=== PATIENT | male | born 1950 | race Hispanic/Latino ===

== ENCOUNTER 2020-04-25 06:58 | Outpatient (CLI) | payer MEDICARE, OTHER ==
[2020-04-25 18:16] LABS: SARS-CoV-2 MS2 Positive; SARS-CoV-2 N Gene Negative; SARS-CoV-2 S Gene Negative; SARS-CoV-2 by NAA Not Detected (NotDetected); SARS-CoV-2 orf1ab Negative
== END 2020-04-25 06:59 | disposition home or self-care (01) ==
LOC: LABBT 06:58
PROVIDERS: ATTEND Ophthalmology Retina Specialist
DX: H35.341 Macular cyst, hole, or pseudohole, right eye (principal); Z20.828 Contact with and (suspected) exposure to other viral communicable diseases
CPT/HCPCS: 87635; U0003

== ENCOUNTER 2020-04-29 06:29 | Day surgery (SDC) | payer MEDICARE ==
[2020-04-28 12:26] VITALS: BMI 23.1
[2020-04-29] MEDS ORDERED: EPINEPHrine 0.3 MG in Ophthalmic Irrigation Solution 500 ML IRR SCH (06:30)
[2020-04-29] MEDS ORDERED: PROPOFOL 20 ML ONE (06:50)
[2020-04-29] MEDS ORDERED: Midazolam HCl 2 mg/2 ml Vial ONE (06:50)
[2020-04-29] MEDS ORDERED: Phenylephrine 2.5% Ophth Soln 5 ML BOT ONE (06:54)
[2020-04-29] MEDS ORDERED: Cyclopentolate 1% Opth Drop 2 ML BOT ONE (06:54)
[2020-04-29] MEDS ORDERED: Labetalol HCl 100 MG/20 ML VIAL ONE (09:33)
[2020-04-29] MEDS ORDERED: CEFAZOLIN 1 GM VIAL ONE (09:48)
[2020-04-29] MEDS ORDERED: Lidocaine 1% PF 5 ML VIAL ONE (09:48)
[2020-04-29] MEDS ORDERED: Lidocaine 4% PF 5 ML AMP ONE (09:48)
[2020-04-29] MEDS ORDERED: Indocyanine Green 25 MG/10 ML VIAL ONE (09:48)
[2020-04-29] MEDS ORDERED: Triamcinolone 40 MG/ML VIAL ONE (09:48)
[2020-04-29] MEDS ORDERED: Maxitrol 0.1% Opth Oint 3.5 GM TUBE ONE (09:48)
[2020-04-29] MEDS ORDERED: Bupivacaine PF 0.75% SDV 10 ML ONE (09:48)
--- NOTE | 2020-04-29 14:23 | OP ---
DATE OF PROCEDURE: 04/29/2020 PRINCIPAL PREOPERATIVE DIAGNOSIS: Macular hole, right eye. POSTOPERATIVE DIAGNOSIS: Macular hole, right eye. PROCEDURES PERFORMED: 1. 25-gauge pars plana vitrectomy, right eye. 2. Internal limiting membrane peel, right eye. 3. 15% SF6 fill, right eye. ESTIMATED BLOOD LOSS: None. SPECIMENS REMOVED: None. COMPLICATIONS: None. ANESTHESIA: MAC with sub-Tenon's block. DESCRIPTION OF PROCEDURE: The patient was identified in the preoperative holding area, where the correct eye being the right eye was marked for surgery. The patient was taken to the operating room, where MAC anesthesia was induced. The right eye was prepped and draped in the usual sterile ophthalmic fashion for surgery. A wire-clip lid speculum was placed. An inferonasal conjunctival peritomy was fashioned with Mannie scissors for administration of sub-Tenon's block. The block consisted of 1:1 ratio of 4% lidocaine and 0.75% Marcaine. A total of 5 mL administered. A standard 25-gauge pars plana vitrectomy platform was fashioned with trocars placed approximately 3.5 mm from the limbus. The infusion was noted to be within the vitreous cavity prior to being turned on to an infusion pressure of 30 mmHg. The light pipe and microvitrector were introduced in the eye under visualization of the BIOM viewing system. A careful core vitrectomy was performed followed by injection of the Kenalog. A gentle posterior vitreous detachment was created followed by completion of peripheral shave vitrectomy. Following vitrectomy, ICG dye was used to stain the internal limiting membrane. Using the Jarrett ILM forceps, the internal limiting membrane was peeled in a circumferential fashion about the fovea. The peel extended approximately 2 disk diameters in radius circumferentially. Following peeling, the microvitrector was reintroduced in the eye to remove the residual vitreous debris. A 360-degree scleral depressed exam of the periphery revealed no defects. An air-fluid exchange was performed followed by an air-gas exchange with 15% SF6. The cannulas were sequentially removed and all sclerotomies were noted to be gas tight. The subconjunctival Ancef and Kenalog were injected. The wire-clip lid speculum was removed followed by application of TobraDex ophthalmic ointment, and a light patch and shield. The patient tolerated the procedure well and was taken to outpatient recovery area in good condition. Job ID: [id number]
== END 2020-04-29 09:55 | disposition home or self-care (01) ==
LOC: SDC 06:29
PROVIDERS: ATTEND Ophthalmology Retina Specialist
PROC: 08T43ZZ Resection of Right Vitreous, Percutaneous Approach (ICD-10-PCS; principal; 2020-04-29)
PROC: 08NE3ZZ Release Right Retina, Percutaneous Approach (ICD-10-PCS; 2020-04-29)
DX: H35.341 Macular cyst, hole, or pseudohole, right eye (principal)
CPT/HCPCS: 67025; J0171; J0690; J2001; J2250; J2704; J3301; J3490